=== PATIENT | male | born 1930 | race Caucasian/White ===

== ENCOUNTER 2016-12-26 19:18 | Emergency (ER) | payer MEDICARE, OTHER ==
[~2016-12-26 19:18] MED LIST: ACET500CAP PO; DURICEF PO; GLUCOSAMINEPO PO; GLUCOTRO10 PO; HYT2 PO; L40 PO; LEVOTHYROXIN112 MCG PO; LOPRESSOR PO; NORCO1 TAB PO; PREDNISOLO15 MG/5 M1 PO; VIGAMOX OPH; VITE PO; ZOCOR10 PO
[2016-12-26 21:52] LABS: BASOPHILS 0.5 %; BASOPHILS ABSOLUTE 0.03 10/3/uL (0.0-0.16); EOSINOPHILS ABSOLUTE 0.12 10/3/uL (0.0-0.53); ER CBC TAT 0 Hrs 07 Mins; HEMATOCRIT 41.2 % (40.0-51.0); HEMOGLOBIN 12.9 g/dL (13.6-17.8); IMMATURE GRANULOCYTES 0.2 %; IMMATURE GRANULOCYTES ABSOLUTE 0.01 10/3/uL (0.0-0.11); LYMPHOCYTES 29.9 %; LYMPHOCYTES ABSOLUTE 1.82 10/3/uL (0.67-4.30); MANUAL DIFF NO %; MEAN CORPUS HGB CONC 31.3 g/dL (32.0-36.0); MEAN CORPUSCULAR HEMOGLOB 30.1 pg (26.0-34.0); MEAN CORPUSCULAR VOLUME 96.3 fL (80-100); MEAN PLATELET VOLUME 9.5 fL (9.2-13.0); MONOCYTES ABSOLUTE 0.91 10/3/uL (0.21-1.20); NEUTROPHILS 52.4 %; NEUTROPHILS ABSOLUTE 3.19 10/3/uL (2.02-8.40); PLATELET COUNT 166 10/3/uL (150-400); RBC DISTRIBUTION WIDTH 14.3 % (12.0-16.0); RED CELL COUNT 4.28 10/6/uL (4.7-6.1); WHITE BLOOD CELLS 6.1 10/3/uL (4.5-10.5)
[2016-12-26 22:04] LABS: BUN (BLOOD UREA NITROGEN) 39 MG/DL (6-23); CALCIUM, SERUM 8.6 MG/DL (8.5-10.4); CHLORIDE, SERUM 104 MMOL/L (96-112); CO2 (CARBON DIOXIDE) 30 MMOL/L (24-34); CREATININE 2.14 MG/DL (0.70-1.30); GFR AFRICAN AMERICAN 32 ML/MIN (>=60); GFR NON AFRICAN AMERICAN 27 ML/MIN (>=60); GLUCOSE, SERUM 59 MG/DL (60-99); POTASSIUM, SERUM 5.1 MMOL/L (3.5-5.3); SODIUM, SERUM 138 MMOL/L (135-148)
[2016-12-26 22:18] LABS: PLATELET ESTIMATE ADQ (ADEQUATE)
[2016-12-26 22:19] LABS: RBC MORPHOLOGY NORM (NORMAL)
[2016-12-26 22:57] LABS: ASCORBIC ACID (UR NOT ORDER) NEG (NEG); BILIRUBIN, URINE NEGATIVE (NEG); ER URINALYSIS TAT 0 Hrs 18 Mins; KETONE, URINE NEGATIVE (NEG); LEUKOCYTE ESTERASE(NOT OR LARGE (NEG); NITRITE (URINE) NEG (NEG); WBC (NOT ORDERED) (RFLEX) 38 (0-5)
== END 2016-12-27 00:38 | disposition home or self-care (01) ==
LOC: ER 19:18
PROVIDERS: Student in an Organized Health Care Education/Training Program
DX: N39.0 Urinary tract infection, site not specified (principal); R33.9 Retention of urine, unspecified; I50.9 Heart failure, unspecified; Z79.899 Other long term (current) drug therapy
CPT/HCPCS: 80048; 81001; 85025; 87086; 96374; 99283